=== PATIENT | female | born 1995 | race Hispanic/Latino ===

== ENCOUNTER 2018-06-07 18:51 | Emergency (ER) | payer OTHER ==
[2018-06-07] MEDS ORDERED: KETOROLAC TROMETHAMINE 30MG/ML ONE (19:41)
== END 2018-06-07 19:56 | disposition home or self-care (01) ==
LOC: EDH 18:51
DX: G44.209 Tension-type headache, unspecified, not intractable (principal); M26.621 Arthralgia of right temporomandibular joint
CPT/HCPCS: 96372; 99283; J1885

== ENCOUNTER 2019-06-03 21:22 | Emergency (ER) | payer OTHER ==
[2019-06-03] MEDS ORDERED: DiphenhydrAMINE HCL 50 MG/ML VIAL ONE (22:03)
[2019-06-03] MEDS ORDERED: PROCHLORPERAZINE EDISYLATE 10 MG/2 ML VIAL ONE (22:04)
[2019-06-03] MEDS ORDERED: SODIUM CHLORIDE 0.9% 500ML 500 ML IV ONE (22:04)
[2019-06-03 22:12] LABS: BASOPHILS % (AUTO) 0.3 % (0.0-5.0); EOSINOPHILS % (AUTO) 1.1 % (0.0-8.0); HEMATOCRIT 39.7 % (36-48); LYMPHOCYTES % (AUTO) 28.8 % (21.0-51.0); MEAN CORPUSCULAR HEMOGLOBIN 28.8 pg (27.0-33.0); MEAN CORPUSCULAR HGB CONC 32.2 g/dL (32.0-36.0); MEAN CORPUSCULAR VOLUME 89.2 fL (79-99); NEUTROPHILS % (AUTO) 60.7 % (40.0-77.0); PLATELET COUNT (AUTO) 271 K/uL (130-400); RED BLOOD CELL COUNT(AUTO) 4.45 MIL/uL (4.00-5.50); RED CELL DISTRIBUTION WIDTH 12.6 % (11.0-15.5); WHITE BLOOD COUNT (AUTO) 7.2 K/uL (4.8-10.8)
[2019-06-03 22:15] LABS: APPEARANCE,URINE Cloudy (CLEAR); BILIRUBIN,URINE Negative (NEGATIVE); COLOR,URINE Yellow (YELLOW); GLUCOSE, URINE (UA) Negative (NEGATIVE); KETONES,URINE Negative (NEGATIVE); LEUKOCYTE ESTERASE ,URINE Negative (NEGATIVE); NITRATE,URINE Negative (NEGATIVE); OCCULT BLOOD,URINE Small (NEGATIVE); PH,URINE 5.5 (5.0-8.0); PROTEIN,URINE Negative (NEGATIVE)
[2019-06-03 22:18] LABS: HCG,QUAL RESULT NEGATIVE (NEGATIVE)
[2019-06-03 22:24] LABS: CREATININE 0.8 mg/dL (0.5-1.5); POTASSIUM 3.6 mmol/L (3.5-5.1)
[2019-06-03 22:58] LABS: AMORPHOUS SEDIMENT,UR Moderate /LPF (None Seen); BACTERIA,URINE Few /HPF (None Seen); MUCUS,URINE Many LPF (None Seen); RBC,URINE 0-1 /HPF (0-1); SQUAMOUS EPITHELIAL CELL,UR Moderate /HPF (0-2); WBC,URINE None Seen /HPF (0-1)
== END 2019-06-03 23:25 | disposition home or self-care (01) ==
LOC: EDH 21:22
DX: G43.909 Migraine, unspecified, not intractable, without status migrainosus (principal)
CPT/HCPCS: 36415; 70450; 80048; 81001; 81025; 85025; 96374; 96375; 99285; J0780; J1200; J7040

== ENCOUNTER 2020-12-31 18:24 | Emergency (ER) | payer OTHER, BC ==
[~2020-12-31] VITALS: Ht 162.6 cm; Wt 86.2 kg
[2020-12-31 18:25] VITALS: BP 126/69
[2020-12-31 19:31] LABS: APPEARANCE,URINE Cloudy (CLEAR); BILIRUBIN,URINE Negative (NEGATIVE); COLOR,URINE Dark Yellow (YELLOW); GLUCOSE, URINE (UA) Negative (NEGATIVE); KETONES,URINE >=80 mg/dL (NEGATIVE); LEUKOCYTE ESTERASE ,URINE Moderate (NEGATIVE); NITRATE,URINE Negative (NEGATIVE); OCCULT BLOOD,URINE Moderate (NEGATIVE); PH,URINE 5.5 (5.0-8.0); PROTEIN,URINE Trace mg/dL (NEGATIVE)
[2020-12-31 19:36] LABS: HCG,QUAL RESULT NEGATIVE (NEGATIVE)
[2020-12-31 20:00] LABS: BACTERIA,URINE Few /HPF (None Seen); MUCUS,URINE Few LPF (None Seen); SQUAMOUS EPITHELIAL CELL,UR Moderate /HPF (0-2)
[2020-12-31] MEDS ORDERED: CEPH500B PO (20:16)
== END 2020-12-31 20:33 | disposition home or self-care (01) ==
LOC: EDH 18:24
DX: N39.0 Urinary tract infection, site not specified (principal); Z20.822 Contact with and (suspected) exposure to COVID-19
CPT/HCPCS: 81001; 81025; 87088; 87635; 87804 ×2; 99283; C9803

== ENCOUNTER 2021-01-03 08:59 | Emergency (ER) | payer OTHER, BC ==
[~2021-01-03] VITALS: Ht 162.6 cm; Wt 86.2 kg
[~2021-01-03 08:59] MED LIST: CEPH500B PO
[2021-01-03] MEDS ORDERED: ONDANSETRON ODT 4MG TAB ONE (10:19)
[2021-01-03 10:25] LABS: APPEARANCE,URINE Clear (CLEAR); BILIRUBIN,URINE Negative (NEGATIVE); COLOR,URINE Yellow (YELLOW); GLUCOSE, URINE (UA) Negative (NEGATIVE); KETONES,URINE Trace mg/dL (NEGATIVE); LEUKOCYTE ESTERASE ,URINE Small (NEGATIVE); NITRATE,URINE Negative (NEGATIVE); OCCULT BLOOD,URINE Small (NEGATIVE); PH,URINE 6.5 (5.0-8.0); PROTEIN,URINE Trace mg/dL (NEGATIVE)
[2021-01-03] MEDS ORDERED: ONDANSETRON 4MG TABLET PO ONE (10:30)
[2021-01-03 10:41] LABS: HCG,QUAL RESULT NEGATIVE (NEGATIVE)
[2021-01-03 10:42] LABS: BACTERIA,URINE Rare /HPF (None Seen); MUCUS,URINE Few LPF (None Seen); RBC,URINE 0-1 /HPF (0-1); SQUAMOUS EPITHELIAL CELL,UR Few /HPF (0-2); WBC,URINE 0-1 /HPF (0-1)
[2021-01-03] MEDS ORDERED: ONDA4TAB4 PO (13:13)
[2021-01-03 14:30] VITALS: BP 125/74
[2021-01-03 14:31] VITALS: BP 126/64
== END 2021-01-03 14:31 | disposition home or self-care (01) ==
LOC: EDH 08:59
DX: R11.2 Nausea with vomiting, unspecified (principal); R42 Dizziness and giddiness; Z20.822 Contact with and (suspected) exposure to COVID-19; Z79.899 Other long term (current) drug therapy
CPT/HCPCS: 81001; 81025; 87635; 99283; C9803

== ENCOUNTER 2021-06-28 17:29 | Emergency (ER) | payer OTHER, MEDICAID ==
[~2021-06-28] VITALS: Ht 162.6 cm; Wt 77.1 kg
[~2021-06-28 17:29] MED LIST changes: +ONDA4TAB4 PO
[2021-06-28 17:59] LABS: BASOPHILS % (AUTO) 0.1 % (0.0-5.0); EOSINOPHILS % (AUTO) 0.5 % (0.0-8.0); HEMATOCRIT 36.5 % (36-48); LYMPHOCYTES % (AUTO) 18.3 % (21.0-51.0); MEAN CORPUSCULAR HEMOGLOBIN 28.5 pg (27.0-33.0); MEAN CORPUSCULAR HGB CONC 32.6 g/dL (32.0-36.0); MEAN CORPUSCULAR VOLUME 87.5 fL (79-99); NEUTROPHILS % (AUTO) 73.9 % (40.0-77.0); PLATELET COUNT (AUTO) 220 K/uL (130-400); RED BLOOD CELL COUNT(AUTO) 4.17 MIL/uL (4.00-5.50); RED CELL DISTRIBUTION WIDTH 13.2 % (11.0-15.5); WHITE BLOOD COUNT (AUTO) 8.3 K/uL (4.8-10.8)
[2021-06-28 18:11] LABS: APPEARANCE,URINE CLOUDY (CLEAR); BILIRUBIN,URINE NEGATIVE (NEGATIVE); COLOR,URINE YELLOW (YELLOW); GLUCOSE, URINE (UA) NEGATIVE (NEGATIVE); KETONES,URINE NEGATIVE (NEGATIVE); LEUKOCYTE ESTERASE ,URINE TRACE (NEGATIVE); NITRATE,URINE NEGATIVE (NEGATIVE); OCCULT BLOOD,URINE LARGE (NEGATIVE); PROTEIN,URINE TRACE mg/dL (NEGATIVE)
[2021-06-28 18:14] LABS: HCG,QUAL RESULT POSITIVE (NEGATIVE)
[2021-06-28 18:16] LABS: BACTERIA,URINE Few /HPF (None Seen); RBC,URINE 51-100 /HPF (0-1)
[2021-06-28 18:17] LABS: SQUAMOUS EPITHELIAL CELL,UR Few /HPF (0-2)
[2021-06-28 18:30] LABS: CREATININE 0.6 mg/dL (0.5-1.5); POTASSIUM 3.4 mmol/L (3.5-5.1)
[2021-06-28 18:56] LABS: ALBUMIN 3.4 g/dL (3.5-5.0); BILIRUBIN,TOTAL 0.4 mg/dL (0.2-1.0); TOTAL PROTEIN, SERUM 7.5 g/dL (6.0-8.3)
[2021-06-28] MEDS ORDERED: CEPH500B PO (18:57)
[2021-06-28 19:28] VITALS: BP 105/57
== END 2021-06-28 19:28 | disposition home or self-care (01) ==
LOC: EDH 17:29
DX: O20.0 Threatened abortion (principal); Z3A.15 15 weeks gestation of pregnancy; Z87.440 Personal history of urinary (tract) infections
CPT/HCPCS: 36415; 76805; 80053; 81001; 81025; 84702; 85025; 86900; 86901

== ENCOUNTER 2021-07-07 21:46 | Emergency (ER) | payer OTHER, MEDICAID ==
[~2021-07-07] VITALS: Ht 162.6 cm; Wt 72.6 kg
[2021-07-07] MEDS ORDERED: MAG/ALUM/SIMETH 30 ML UDCUP PO ONE (22:30)
[2021-07-07] MEDS ORDERED: FAMOTIDINE 20MG VIAL IV ONE (22:30)
[2021-07-07] MEDS ORDERED: ONDANSETRON 4MG INJ IVP ONE (22:30)
[2021-07-07 22:39] LABS: BASOPHILS % (AUTO) 0.1 % (0.0-5.0); EOSINOPHILS % (AUTO) 0.7 % (0.0-8.0); HEMATOCRIT 35.3 % (36-48); LYMPHOCYTES % (AUTO) 15.2 % (21.0-51.0); MEAN CORPUSCULAR HEMOGLOBIN 29.5 pg (27.0-33.0); MEAN CORPUSCULAR HGB CONC 33.1 g/dL (32.0-36.0); MEAN CORPUSCULAR VOLUME 89.1 fL (79-99); MONOCYTES % (AUTO) 6.6 % (3.0-13.0); NEUTROPHILS % (AUTO) 76.9 % (40.0-77.0); PLATELET COUNT (AUTO) 214 K/uL (130-400); RED BLOOD CELL COUNT(AUTO) 3.96 MIL/uL (4.00-5.50); RED CELL DISTRIBUTION WIDTH 13.1 % (11.0-15.5); WHITE BLOOD COUNT (AUTO) 10.6 K/uL (4.8-10.8)
[2021-07-07] MEDS ORDERED: DICYCLOMINE HCL 10 MG/5 ML ML PO ONE (22:43)
[2021-07-07 22:50] LABS: CREATININE 0.6 mg/dL (0.5-1.5); POTASSIUM 3.1 mmol/L (3.5-5.1)
[2021-07-07 22:57] LABS: APPEARANCE,URINE Cloudy (CLEAR); BILIRUBIN,URINE Small (NEGATIVE); COLOR,URINE Dark Yellow (YELLOW); GLUCOSE, URINE (UA) Negative (NEGATIVE); KETONES,URINE 40 mg/dL (NEGATIVE); LEUKOCYTE ESTERASE ,URINE Small (NEGATIVE); NITRATE,URINE Negative (NEGATIVE); OCCULT BLOOD,URINE Trace (NEGATIVE); PH,URINE 6.5 (5.0-8.0); PROTEIN,URINE POS 2+ mg/dL (NEGATIVE)
[2021-07-07] MEDS ORDERED: POTASSIUM BICARB/CIT AC 25 MEQ TABLET.EFF PO ONE (23:00)
[2021-07-07 23:16] LABS: BACTERIA,URINE Few /HPF (None Seen); MUCUS,URINE Few LPF (None Seen)
[2021-07-07 23:25] LABS: ALBUMIN 3.5 g/dL (3.5-5.0); BILIRUBIN,TOTAL 0.4 mg/dL (0.2-1.0); TOTAL PROTEIN, SERUM 7.6 g/dL (6.0-8.3)
[2021-07-07] MEDS ORDERED: CEFTRIAXONE 1G VIAL IVP ONE (23:30)
[2021-07-07] MEDS ORDERED: CEPH500B PO (23:52)
[2021-07-07 23:55] VITALS: BP 98/57
== END 2021-07-08 00:07 | disposition home or self-care (01) ==
LOC: EDH 21:46
DX: O23.42 Unspecified infection of urinary tract in pregnancy, second trimester (principal); O99.62 Diseases of the digestive system complicating childbirth; K29.70 Gastritis, unspecified, without bleeding; Z3A.15 15 weeks gestation of pregnancy
CPT/HCPCS: 36415; 80053; 81001; 83690; 84702; 85025; 96374; 96375; 99284; J0696; J2405; J3490

== ENCOUNTER 2021-07-20 04:22 | Emergency (ER) | payer OTHER, MEDICAID ==
[~2021-07-20] VITALS: Ht 162.6 cm; Wt 76.2 kg
[2021-07-20] MEDS ORDERED: 0.9%NACL 1000ML 1,000 ML IV ONE ×2 (04:25→05:00)
[2021-07-20 04:41] LABS: BASOPHILS % (AUTO) 0.1 % (0.0-5.0); EOSINOPHILS % (AUTO) 1.2 % (0.0-8.0); HEMATOCRIT 32.8 % (36-48); LYMPHOCYTES % (AUTO) 33.4 % (21.0-51.0); MEAN CORPUSCULAR HEMOGLOBIN 29.5 pg (27.0-33.0); MEAN CORPUSCULAR HGB CONC 32.3 g/dL (32.0-36.0); MEAN CORPUSCULAR VOLUME 91.4 fL (79-99); MONOCYTES % (AUTO) 7.3 % (3.0-13.0); NEUTROPHILS % (AUTO) 57.6 % (40.0-77.0); PLATELET COUNT (AUTO) 199 K/uL (130-400); RED BLOOD CELL COUNT(AUTO) 3.59 MIL/uL (4.00-5.50); RED CELL DISTRIBUTION WIDTH 13.7 % (11.0-15.5); WHITE BLOOD COUNT (AUTO) 7.6 K/uL (4.8-10.8)
[2021-07-20 04:52] LABS: CREATININE 0.6 mg/dL (0.5-1.5); POTASSIUM 3.5 mmol/L (3.5-5.1)
[2021-07-20] MEDS ORDERED: METOCLOPRAMIDE 10 MG/2 ML VIAL IVP ONE ×2 (04:55→05:00)
[2021-07-20] MEDS ORDERED: FAMOTIDINE 20MG VIAL IV ONE (05:00)
[2021-07-20] MEDS ORDERED: ONDANSETRON 4MG INJ IVP ONE ×2 (05:00)
[2021-07-20] MEDS ORDERED: PANTOPRAZOLE 40 MG/VIAL IVP ONE (05:00)
[2021-07-20 05:20] LABS: ALBUMIN 2.9 g/dL (3.5-5.0); BILIRUBIN,TOTAL 0.4 mg/dL (0.2-1.0); TOTAL PROTEIN, SERUM 6.9 g/dL (6.0-8.3)
[2021-07-20 06:03] LABS: BILIRUBIN,URINE Small (NEGATIVE); COLOR,URINE Dark Yellow (YELLOW); GLUCOSE, URINE (UA) Negative (NEGATIVE); KETONES,URINE Trace mg/dL (NEGATIVE); LEUKOCYTE ESTERASE ,URINE Large (NEGATIVE); NITRATE,URINE Negative (NEGATIVE); OCCULT BLOOD,URINE Negative (NEGATIVE); PROTEIN,URINE POS 1+ mg/dL (NEGATIVE)
[2021-07-20 06:08] LABS: APPEARANCE,URINE CLOUDY (CLEAR)
[2021-07-20 06:21] VITALS: BP 91/49
[2021-07-20 06:21] LABS: BACTERIA,URINE Rare /HPF (None Seen); MUCUS,URINE Few LPF (None Seen); RBC,URINE 0-1 /HPF (0-1); SQUAMOUS EPITHELIAL CELL,UR Moderate /HPF (0-2)
[2021-07-20 06:22] LABS: AMORPHOUS SEDIMENT,UR Moderate /LPF (None Seen)
[2021-07-20] MEDS ORDERED: CEFTRIAXONE 1G VIAL IVP ONE (06:30)
[2021-07-20] MEDS ORDERED: CEFTRIAXONE 1G VIAL ONE (06:42)
[2021-07-20] MEDS ORDERED: LACTATED RINGERS 1000ML 1,000 ML IV SCH (07:00)
[2021-07-20] MEDS ORDERED: PHEN12S PR (07:01)
[2021-07-20] MEDS ORDERED: ONDA4TAB10 PO (07:01)
[2021-07-20] MEDS ORDERED: PANT40TA PO (07:01)
[2021-07-20] MEDS ORDERED: DICY20TA2 PO (07:01)
[2021-07-20] MEDS ORDERED: SULF1TAB42 PO (07:01)
[2021-07-20] MEDS ORDERED: METO-296 PO (07:01)
== END 2021-07-20 07:14 | disposition home or self-care (01) ==
LOC: EDH 04:22
DX: O99.612 Diseases of the digestive system complicating pregnancy, second trimester (principal); K29.70 Gastritis, unspecified, without bleeding; O23.42 Unspecified infection of urinary tract in pregnancy, second trimester; N39.0 Urinary tract infection, site not specified; E86.9 Volume depletion, unspecified; R55 Syncope and collapse; Z79.899 Other long term (current) drug therapy; Z3A.18 18 weeks gestation of pregnancy
CPT/HCPCS: 36415; 76705; 76805; 80053; 81001; 83605; 83690; 84484; 84702; 85025; 86850; 86900; 86901; 87088; 96361; 96374; 96375; 99284; C9113; J0696; J2405; J2765; J3490; J7030

== ENCOUNTER 2021-08-02 23:39 | Observation (INO) | payer MEDICAID, OTHER ==
[~2021-08-02] VITALS: Ht 162.6 cm; Wt 69.9 kg
[~2021-08-02 23:39] MED LIST changes: +DICY20TA2 PO; +METO-296 PO; +ONDA4TAB10 PO; +PANT40TA PO; +PHEN12S PR; +SULF1TAB42 PO
[2021-08-02 23:47] VITALS: BP 86/40
[2021-08-03 00:36] LABS: BILIRUBIN,URINE Small (NEGATIVE); COLOR,URINE Dark Yellow (YELLOW); GLUCOSE, URINE (UA) Negative (NEGATIVE); KETONES,URINE 15 mg/dL (NEGATIVE); LEUKOCYTE ESTERASE ,URINE Large (NEGATIVE); NITRATE,URINE Negative (NEGATIVE); OCCULT BLOOD,URINE Negative (NEGATIVE); PROTEIN,URINE POS 2+ mg/dL (NEGATIVE)
[2021-08-03 00:48] LABS: AMPHET/METH SCREEN,URINE NEGATIVE (NEGATIVE); BARBITURATE SCREEN, URINE NEGATIVE (NEGATIVE); BENZODIAZEPINES SCREEN,URINE NEGATIVE (NEGATIVE); CANNABINOID SCREEN,URINE NEGATIVE (NEGATIVE); COCAINE SCREEN,URINE NEGATIVE (NEGATIVE); OPIATE SCREEN,URINE NEGATIVE (NEGATIVE); PHENCYCLIDINE SCREEN,URINE NEGATIVE (NEGATIVE)
[2021-08-03 00:50] LABS: APPEARANCE,URINE CLOUDY (CLEAR)
[2021-08-03 00:52] LABS: HCG,QUAL RESULT POSITIVE (NEGATIVE)
[2021-08-03 00:57] LABS: BACTERIA,URINE Few /HPF (None Seen); MUCUS,URINE Few LPF (None Seen); RBC,URINE None Seen /HPF (0-1); SQUAMOUS EPITHELIAL CELL,UR Moderate /HPF (0-2)
[2021-08-03] MEDS ORDERED: BUTORPHANOL TARTRATE 2 MG/ML IVP PRN (01:00)
[2021-08-03] MEDS ORDERED: LACTATED RINGERS 1000ML 1,000 ML IV SCH (01:00)
[2021-08-03] MEDS ORDERED: PANTOPRAZOLE 40 MG/VIAL IVP ONE (01:00)
== END 2021-08-03 06:46 | disposition home or self-care (01) ==
LOC: EDH 23:39 → LDH 23:40
PROVIDERS: ADMIT Obstetrics & Gynecology; ATTEND Obstetrics & Gynecology
DX: O26.892 Other specified pregnancy related conditions, second trimester (principal); R10.11 Right upper quadrant pain; R10.13 Epigastric pain; R60.0 Localized edema; O21.9 Vomiting of pregnancy, unspecified; O99.612 Diseases of the digestive system complicating pregnancy, second trimester; K29.70 Gastritis, unspecified, without bleeding; K80.80 Other cholelithiasis without obstruction; Z3A.20 20 weeks gestation of pregnancy
CPT/HCPCS: 80305; 81001; 81025; 87088; 96361 ×3; 96374; 96375; G0378 ×7; G0379; J0595; J7120; S0164; 96360; C9113